=== PATIENT | male | born 1990 | race Caucasian/White ===

== ENCOUNTER 2022-10-17 07:27 | Outpatient (CLI) | payer BC, SELFPAY ==
--- NOTE | ~2022-10-17 | US_ITS ---
Abdominal Sonogram: Real-time sonographic imaging of the abdomen was performed. Clinical History: Abnormal serum enzymes Findings: The liver appears mildly echogenic/heterogeneous, with no evidence of mass lesion or bile duct dilatation. It measures 19.6 cm in length. Main portal vein demonstrates normal direction of elsa w. The spleen is borderline enlarged, without evidence of focal lesion. The gallbladder is well dist ended, and appears normal with no evidence of gallstone or wall thickening. The common bile duct jim ures 3 mm. The visualized aorta and IVC are unremarkable. Pancreas obscured by bowel gas shadowing. The right kidney measures 11.4 cm in length and the left kidney measures 11.7 cm. There is no hydron ephrosis or renal calculus. Impression: Hepatomegaly with probable diffuse fatty infiltration of the liver. Borderline splenomegaly. Reviewed, dictated and finalized at [facility]. CULAR BIOLOGY DIRECTOR Impression: Hepatomegaly with probable diffuse fatty infiltration of the liver. Borderline splenomegaly.
== END 2022-10-17 07:28 | disposition home or self-care (01) ==
LOC: CHSIMG 07:30
PROVIDERS: PCP Family Medicine; Visit Provider Family Medicine
DX: R74.8 Abnormal levels of other serum enzymes (principal); R16.0 Hepatomegaly, not elsewhere classified; R16.1 Splenomegaly, not elsewhere classified
CPT/HCPCS: 76700

== ENCOUNTER 2022-10-19 08:52 | Outpatient (CLI) | payer BC, SELFPAY ==
--- NOTE | ~2022-10-19 | CT_ITS ---
CT Abdomen and Pelvis with contrast. History: Elevated pancreatic enzymes. Spiral CT of the abdomen and pelvis was performed after the administration of intravenous contrast. 1 00 cc of Omnipaque 350 was administered intravenously without complication. Dose reduction technique was used on this scan by utilizing automated exposure control and iterative reconstruction technique. The dose-length product (DLP) was 928.57 mGy-cm. Findings: Scans through the lung bases demonstrate mild atelectatic change. The liver, spleen, pancreas, gallbladder, adrenals and kidneys are within normal limits. No evidence of aortic aneurysm. No lymphadenopathy is seen. There is no evidence of bowel obstruction. There is no evidence to suggest acute appendicitis or dive rticulitis. Images through the pelvis were performed. Urinary bladder unremarkable. Prostate gland and seminal ve sicles are unremarkable. No ascites is seen. Impression: No significant abnormalities seen. Reviewed, dictated and finalized at [facility]. TER IN Impression: No significant abnormalities seen.
== END 2022-10-19 08:53 | disposition home or self-care (01) ==
LOC: CHSIMG 08:54
PROVIDERS: PCP Family Medicine; Visit Provider Family Medicine
DX: R74.8 Abnormal levels of other serum enzymes (principal)
CPT/HCPCS: 74177; Q9967

== ENCOUNTER 2022-10-30 09:44 | Outpatient (CLI) | payer BC, SELFPAY ==
[2022-10-30 10:28] LABS: Lipase 132 U/L (23-300)
[2022-11-01 19:49] LABS: Tissue Transglutaminase IgA Ab <1.0 U/mL (<15.0)
[2022-11-01 20:47] LABS: Tissue Transglutaminase IgG Ab <1.0 U/mL (<15.0)
== END 2022-10-30 09:45 | disposition home or self-care (01) ==
LOC: ANHLAB 09:46
PROVIDERS: PCP Family Medicine; Visit Provider Nurse Practitioner
DX: K21.9 Gastro-esophageal reflux disease without esophagitis (principal); R10.30 Lower abdominal pain, unspecified; R19.7 Diarrhea, unspecified; R13.10 Dysphagia, unspecified; R74.8 Abnormal levels of other serum enzymes; R93.3 Abnormal findings on diagnostic imaging of other parts of digestive tract
CPT/HCPCS: 36415; 83516; 83690; 84443

== ENCOUNTER 2022-11-24 01:59 | Day surgery (SDC) | payer BC, SELFPAY ==
[2022-11-13 13:50] VITALS: BMI 32.8
--- NOTE | 2022-11-23 15:19 | P.PNAN_ITS ---
Anes - Initial Pre Proc Eval Procedure: Operation Date: 11/24/22 11:15 Proposed Procedures p Esophagogastroduodenoscopy & Colonoscopy - Presley Eid MD Date/Time: 11/23/22 15:19 Surgeon: Presley Eid MD Pre Op Diagnosis: diarrhea, dysphagia Patient Data Age: 32 Gender: M Height: 1.83 m Weight: 110 kg Allergies Allergy/AdvReac Type Severity Reaction Status Date / Time Penicillins Allergy Swelling Verified 11/24/22 09:46 of Lip/Tongue/Throat Home Medications Medication Instructions Recorded Confirmed Type esomeprazole magnesium 40 mg 40 mg PO DAILY 10/27/22 11/24/22 History capsule,delayed release sumatriptan succinate 100 mg tablet 100 mg PO ONCE PRN Migraine 10/27/22 11/24/22 History Headache meclizine 25 mg tablet 25 mg PO DAILY PRN Migraine 11/13/22 11/24/22 History Headache oxcarbazepine 150 mg 150 mg PO BID 11/13/22 11/24/22 History tablet,extended release 24 hr promethazine 25 mg tablet 25 mg PO DAILY PRN Migraine 11/13/22 11/24/22 History Headache Patient hx anesthesia problems: none Family hx anesthesia problems: none Results Review: All pre-operative results and documents have been reviewed as part of the pre- operative evaluation. [facility] Past Medical History Medical History (Updated 10/30/22 @ 09:52 by Opal Baeza APRN) Diarrhea Dysphagia GERD (gastroesophageal reflux disease) Hepatic steatosis Increased serum lipase level Lower abdominal pain Migraine Obesity Family History Family History Father Heart disease Coronary artery disease Social History Social History Smoking status: Unknown if ever smoked Tobacco type: smokeless tobacco Smokeless tobacco user: chewing tobacco Additional smoking assessment comments: Chewing since age 12 Substance use: former Living arrangements: with family Anes - Eval Final PreProcedure Day of Procedure 11/23/22 15:19 Patient weight: obese Heart: regular rate and rhythm Lungs: clear to auscultation Airway: Mallampati scale class II Neurological: alert and oriented Last oral intake: >/= 8 hours ASA classification: III Emergent: no Anesthetic plan: proceed Anesthesia type and monitoring: general GIVS and standard monitoring Results Review: All pre-operative results and documents have been reviewed as part of the pre- operative evaluation. Informed Consent: The patient's anesthetic plan and its attendant risks and benefits were discussed with the patient/family/POA. Questions were solicited and answers provided to the satisfaction of the patient/family/POA.
[2022-11-24 09:51] VITALS: BP 150/95; PULSE 75; RESP 18; TEMP 36.5; O2SAT 99
[2022-11-24] MEDS: LACTATED RINGERS 1,000 ML 150 ML IV CONT (10:00)
--- NOTE | 2022-11-24 10:33 | WPDHPUPDATE1 ---
History and Physical Update Update Date/Time: 11/24/22 10:33 History and Physical has been reviewed, including an updated exam of the patient. There are NO changes in the patient's condition. Risks, benefits, and alternatives have been discussed and questions answered. Patient agrees to proceed with procedure.
--- NOTE | 2022-11-24 11:08 | SUR.OPER ---
EGD ENDED AT 1054. COLONOSCOPY BEGAN AT 1100.
[2022-11-24 11:14] VITALS: BP 133/97; PULSE 81; RESP 20; O2SAT 100
[2022-11-24 11:24] VITALS: BP 130/93; PULSE 77; RESP 20; O2SAT 98
[2022-11-24 11:34] VITALS: BP 135/92; PULSE 77; RESP 20; O2SAT 98
== END 2022-11-24 11:48 | disposition home or self-care (01) ==
PROVIDERS: PCP Family Medicine; Visit Provider Internal Medicine Gastroenterology
PROC: 0DJ08ZZ Inspection of Upper Intestinal Tract, Via Natural or Artificial Opening Endoscopic (ICD-10-PCS; CPT 43235; principal; 2022-11-24 11:15)
DX: R19.7 Diarrhea, unspecified (principal); K57.30 Diverticulosis of large intestine without perforation or abscess without bleeding; K21.9 Gastro-esophageal reflux disease without esophagitis; K22.2 Esophageal obstruction; K44.9 Diaphragmatic hernia without obstruction or gangrene; K29.70 Gastritis, unspecified, without bleeding; K76.0 Fatty (change of) liver, not elsewhere classified; F17.220 Nicotine dependence, chewing tobacco, uncomplicated; E66.9 Obesity, unspecified; Z68.31 Body mass index [BMI] 31.0-31.9, adult
CPT/HCPCS: 45380; 43239; 43249; 88305; C1726; J2704; J7120

== ENCOUNTER 2023-03-05 08:56 | Outpatient (CLI) | payer BC, SELFPAY ==
[2023-03-05 09:19] LABS: Hematocrit 46.8 % (42.0-52.0); Hemoglobin 15.9 g/dL (14.0-18.0); Mean Corpuscular Hemoglobin 30.5 pg (26-34); Mean Corpuscular Volume 89.7 fl (80-100); Mean Platelet Volume 8.9 fl (7.4-10.4); Platelet Count Result 239 k/mm3 (150-375); Red Blood Count 5.22 M/mm3 (4.6-6.20); White Blood Count 6.6 K/mm3 (4.5-10.0)
[2023-03-05 09:30] LABS: Alanine Aminotransferase 29 U/L (6-50); Albumin Level 4.3 g/dL (3.5-5.1); Alkaline Phosphatase 70 U/L (38-126); Anion Gap 5 mmol/L (8-16); Aspartate Amino Transferase 26 U/L (17-59); Bilirubin,Total 0.5 mg/dL (0.2-1.3); Blood Urea Nitrogen 15 mg/dL (9-20); Calcium 8.9 mg/dL (8.4-10.2); Carbon Dioxide 29 mmol/L (22-30); Chloride 107 mmol/L (98-107); Estimated Glomerular Filt Rate > 60; Glucose 91 mg/dL (65-110); Potassium 4.3 mmol/L (3.4-5.0); Sodium 141 mmol/L (137-145)
[2023-03-16 00:01] LABS: ALT 21 U/L (9-46); Alpha-2-Macroglobulin 190 mg/dL (106-279); Apolipoprotein A1 136 mg/dL (94-176); Fibrosis Stage F0; GGT 41 U/L (3-90); Haptoglobin 171 mg/dL (43-212); Necroinflammat Act Grade A0; Total Bilirubin 0.3 mg/dL (0.2-1.2)
== END 2023-03-05 08:57 | disposition home or self-care (01) ==
LOC: ANHLAB 08:57
PROVIDERS: PCP Family Medicine; Visit Provider Nurse Practitioner
DX: K76.0 Fatty (change of) liver, not elsewhere classified (principal)
CPT/HCPCS: 36415; 80053; 81596; 85027

== ENCOUNTER 2023-07-04 09:27 | Outpatient (CLI) | payer BC, SELFPAY ==
--- NOTE | 2023-07-04 11:00 | NEURO_ITS ---
IMPRESSION: # Complains of numbness of right hand. # Evolving right capral tunnel syndrome. # No ulnar neuropathy. # Needle exam not ordered Nerve Conduction Studies Anti Sensory Summary Table Stim Site NR Peak (ms) P-T Amp (?V) Site1 Site2 Delta-P (ms) Dist (cm) Ramos (m/s) Right Median Anti Sensory (2-3nd Digit) Wrist 3.5 129.2 Wrist 2-3nd Digit 3.5 14.0 40 Wrist 3.1 31.3 Wrist 2-3nd Digit 3.5 14.0 40 Right Radial Anti Sensory (Base 1st Digit) Wrist 2.2 29.1 Wrist Base 1st Digit 2.2 0.0 Right Ulnar Anti Sensory (5th Digit) Wrist 2.8 27.5 Wrist 5th Digit 2.8 14.0 50 Motor Summary Table Stim Site NR Onset (ms) O-P Amp (mV) Site1 Site2 Delta-0 (ms) Dist (cm) Ramos (m/s) Right Median Motor (Abd Poll Brev) Wrist 4.1 5.6 Elbow Wrist 4.8 31.0 65 Elbow 8.9 2.0 Right Ulnar Motor (Abd Dig Minimi) Wrist 2.7 7.2 A Elbow Wrist 4.3 31.0 72 A Elbow 7.0 7.3 F Wave Studies NR F-Lat (ms) L-R F-Lat (ms) Right Median (Mrkrs) (Abd Poll Brev) 32.03 Right Ulnar (Mrkrs) (Abd Dig Min) 31.02 MTDD
== END 2023-07-04 09:28 | disposition home or self-care (01) ==
PROVIDERS: PCP Family Medicine; Visit Provider Family Medicine
DX: G56.01 Carpal tunnel syndrome, right upper limb (principal)
CPT/HCPCS: 95909

== ENCOUNTER 2023-09-05 09:24 | Outpatient (CLI) | payer BC, SELFPAY ==
[2023-09-05 10:07] LABS: Hematocrit 45.8 % (42.0-52.0); Hemoglobin 15.5 g/dL (14.0-18.0); Mean Corpuscular HGB Conc 33.8 g/dl (32-36); Mean Corpuscular Hemoglobin 30.8 pg (26-34); Mean Corpuscular Volume 91.1 fl (80-100); Platelet Count Result 276 k/mm3 (150-375); Red Blood Count 5.03 M/mm3 (4.6-6.20); Red Cell Distribution Width 12.2 % (11.5-14.5); White Blood Count 6.9 K/mm3 (4.5-10.0)
[2023-09-05 10:17] LABS: Alanine Aminotransferase 34 U/L (6-50); Albumin Level 4.4 g/dL (3.5-5.1); Alkaline Phosphatase 80 U/L (38-126); Anion Gap 12 mmol/L (8-16); Aspartate Amino Transferase 26 U/L (17-59); Bilirubin,Total 0.6 mg/dL (0.2-1.3); Blood Urea Nitrogen 15 mg/dL (9-20); Calcium 9.2 mg/dL (8.4-10.2); Carbon Dioxide 24 mmol/L (22-30); Chloride 105 mmol/L (98-107); Estimated Glomerular Filt Rate > 60; Glucose 106 mg/dL (65-110); Potassium 4.3 mmol/L (3.4-5.0); Sodium 141 mmol/L (137-145)
[2023-09-05 10:19] LABS: INR 0.9; Prothrombin Time 12.7 Seconds (11.1-14.7)
== END 2023-09-05 09:25 | disposition home or self-care (01) ==
LOC: ANHLAB 09:25
PROVIDERS: PCP Family Medicine; Visit Provider Nurse Practitioner
DX: K76.0 Fatty (change of) liver, not elsewhere classified (principal)
CPT/HCPCS: 36415; 80053; 85027; 85610

== ENCOUNTER 2023-11-07 12:48 | Outpatient (CLI) | payer BC, SELFPAY ==
--- NOTE | 2023-11-07 14:00 | NEURO_ITS ---
Impression: # Complains of right hand particularly 5th finger numbness. # Evolving right Carpal Tunnel Syndrome. # No ulnar neuropathy. # Clinical correlation recommended. # Compared to study done on 07/04/23 Nerve Conduction Studies Anti Sensory Summary Table Stim Site NR Peak (ms) P-T Amp (?V) Site1 Site2 Delta-P (ms) Dist (cm) Ramos (m/s) Right Median Anti Sensory (2-3nd Digit) Wrist 3.8 39.0 Wrist 2-3nd Digit 3.8 14.0 37 Wrist 3.7 27.6 Wrist 2-3nd Digit 3.8 14.0 37 Right Radial Anti Sensory (Base 1st Digit) Wrist 2.4 21.7 Wrist Base 1st Digit 2.4 0.0 Right Ulnar Anti Sensory (5th Digit) Wrist 2.8 42.6 Wrist 5th Digit 2.8 14.0 50 Motor Summary Table Stim Site NR Onset (ms) O-P Amp (mV) Site1 Site2 Delta-0 (ms) Dist (cm) Ramos (m/s) Right Median Motor (Abd Poll Brev) Wrist 3.5 8.1 Elbow Wrist 5.0 31.0 62 Elbow 8.5 3.8 Right Ulnar Motor (Abd Dig Minimi) Wrist 2.2 8.5 A Elbow Wrist 5.2 31.0 60 A Elbow 7.4 6.8 F Wave Studies NR F-Lat (ms) L-R F-Lat (ms) Right Median (Mrkrs) (Abd Poll Brev) 29.45 Right Ulnar (Mrkrs) (Abd Dig Min) 28.75 MTDD
== END 2023-11-07 12:49 | disposition home or self-care (01) ==
LOC: ANHNEURO 12:49
PROVIDERS: PCP Family Medicine; Visit Provider Family Medicine
DX: G56.01 Carpal tunnel syndrome, right upper limb (principal); G56.21 Lesion of ulnar nerve, right upper limb
CPT/HCPCS: 95909

== ENCOUNTER 2023-11-09 09:50 | Outpatient (CLI) | payer BC, SELFPAY ==
--- NOTE | ~2023-11-09 | XR_ITS ---
EXAMINATION: XR hand RT min 3V INDICATION: Right hand pain and numbness TECHNIQUE: Three views of the right hand are obtained. COMPARISON: None available FINDINGS: Bone alignment is normal. There is no fracture. The joint spaces are normal. The soft tissu es are unremarkable. IMPRESSION: 1. No acute osseous abnormality. Reviewed, dictated and finalized at location F. KER DRIVER
--- NOTE | ~2023-11-09 | XR_ITS ---
EXAMINATION:XR cervical spine 4-5V DATE: 11/09/2023 10:35 INDICATION: Neck pain TECHNIQUE: AP, lateral, bilateral oblique and odontoid views of the cervical spine are provided. COMPARISON: None FINDINGS: Alignment is normal. The odontoid process is intact. No fracture is identified. Vertebral b victor m heights and disk spaces are normal. Prevertebral soft tissues are normal. IMPRESSION: 1. Unremarkable cervical spine radiographs. Reviewed, dictated and finalized at location F. UTERIZED TABLE CUTTER
== END 2023-11-09 09:51 | disposition home or self-care (01) ==
LOC: CHSIMG 09:52
PROVIDERS: PCP Family Medicine; Visit Provider Family Medicine
DX: M79.641 Pain in right hand (principal); M54.2 Cervicalgia
CPT/HCPCS: 72050; 73130

== ENCOUNTER 2024-02-20 15:39 | Outpatient (CLI) | payer BC, SELFPAY ==
[2024-02-20 16:24] LABS: Hematocrit 45.1 % (42.0-52.0); Hemoglobin 15.2 g/dL (14.0-18.0); Mean Corpuscular HGB Conc 33.7 g/dl (32-36); Mean Corpuscular Hemoglobin 31.3 pg (26-34); Mean Corpuscular Volume 92.8 fl (80-100); Mean Platelet Volume 9.2 fl (7.4-10.4); Platelet Count Result 269 k/mm3 (150-375); Red Blood Count 4.86 M/mm3 (4.6-6.20); White Blood Count 8.6 K/mm3 (4.5-10.0)
[2024-02-20 16:34] LABS: Alanine Aminotransferase 32 U/L (6-50); Albumin Level 4.3 g/dL (3.5-5.1); Alkaline Phosphatase 88 U/L (38-126); Anion Gap 7 mmol/L (4-12); Aspartate Amino Transferase 27 U/L (17-59); Bilirubin,Total 0.4 mg/dL (0.2-1.3); Blood Urea Nitrogen 17 mg/dL (9-20); Calcium 9.2 mg/dL (8.4-10.2); Carbon Dioxide 27 mmol/L (22-30); Chloride 107 mmol/L (98-107); Estimated Glomerular Filt Rate > 60; Glucose 102 mg/dL (65-110); INR 0.9; Potassium 3.7 mmol/L (3.4-5.0); Sodium 141 mmol/L (137-145)
== END 2024-02-20 15:40 | disposition home or self-care (01) ==
LOC: ANHLAB 15:41
PROVIDERS: PCP Family Medicine; Visit Provider Nurse Practitioner
DX: K76.0 Fatty (change of) liver, not elsewhere classified (principal)
CPT/HCPCS: 36415; 80053; 85027; 85610

== ENCOUNTER 2024-03-03 14:57 | Outpatient (CLI) | payer BC, SELFPAY ==
--- NOTE | ~2024-03-03 | XR_ITS ---
XR knee LT 3V DATE: 03/03/2024 15:19 INDICATION: Constant knee pain, right worse than left. No known injury. TECHNIQUE: 3 views of left knee COMPARISON: None FINDINGS: No fracture or dislocation or joint effusion. Joint spaces are well preserved. No radiopaqu e intra-articular loose body or chondrocalcinosis. No periosteal reaction or bone destruction. IMPRESSION: Negative Reviewed, dictated and finalized at location A. IMPRESSION: Negative
--- NOTE | ~2024-03-03 | XR_ITS ---
XR knee RT 3V DATE: 03/03/2024 15:19 INDICATION: Bilateral constant knee pain, right worse than left. No injury. TECHNIQUE: AP, lateral, sunrise views COMPARISON: None FINDINGS: No fracture, dislocation, periosteal reaction or bone destruction. No joint effusion. Joint spaces are well preserved. No radiopaque particulate is bilateral chondrocalcinosis. IMPRESSION: Negative Reviewed, dictated and finalized at location A. IMPRESSION: Negative
== END 2024-03-03 14:58 | disposition home or self-care (01) ==
PROVIDERS: PCP Family Medicine; Visit Provider Family Medicine
DX: M25.569 Pain in unspecified knee (principal)
CPT/HCPCS: 73562

== ENCOUNTER 2024-04-07 13:44 | Outpatient (CLI) | payer BC, SELFPAY ==
[2024-04-07 14:18] LABS: Basophils Absolute Auto 0.1 K/mm3 (0.0-0.1); Basophils Percent Auto 0.8 % (0.2-1.2); Eosinophils Absolute Auto 0.4 K/mm3 (0-0.3); Eosinophils Percent Auto 4.2 % (0-4.4); Hematocrit 45.3 % (42.0-52.0); Hemoglobin 15.4 g/dL (14.0-18.0); Immature Granulocyte Absolute 0.02 K/mm3 (0.00-0.031); Immature Granulocyte Percent A 0.2 % (0-0.5); Lymphocytes Absolute Auto 3.23 K/mm3 (0.9-3.2); Mean Corpuscular Hemoglobin 31.1 pg (26-34); Mean Corpuscular Volume 91.5 fl (80-100); Mean Platelet Volume 8.9 fl (7.4-10.4); Monocytes Absolute Auto 0.5 K/mm3 (0.1-0.6); Monocytes Percent Auto 5.8 % (2.6-8.5); Neutrophils Absolute Auto 4.5 K/mm3 (1.3-6.7); Platelet Count Result 276 k/mm3 (150-375); Red Blood Count 4.95 M/mm3 (4.6-6.20); Red Cell Distribution Width 12.3 % (11.5-14.5); White Blood Count 8.7 K/mm3 (4.5-10.0)
[2024-04-07 14:21] LABS: Appearance Urine Clear (Clear); Bilirubin Urine Negative (Negative); Blood Urine Negative (Negative); Color Urine Yellow (Yellow); Glucose Urine UA Negative (Negative); Ketones Urine Negative (Negative); Leukocyte Esterase Ur Negative LEU/UL (Negative); Nitrate Urine Negative (Negative); Protein Urine Negative (Negative); Specific Grav Ur 1.022 (1.001-1.035); Urobilinogen Urine 0.2 mg/dL (<2.0)
[2024-04-07 14:29] LABS: Alanine Aminotransferase 27 U/L (6-50); Albumin Level 4.5 g/dL (3.5-5.1); Alkaline Phosphatase 92 U/L (38-126); Anion Gap 10 mmol/L (4-12); Aspartate Amino Transferase 24 U/L (17-59); Bilirubin,Total 0.5 mg/dL (0.2-1.3); Blood Urea Nitrogen 16 mg/dL (9-20); Carbon Dioxide 26 mmol/L (22-30); Chloride 105 mmol/L (98-107); Estimated Glomerular Filt Rate > 60; Glucose 101 mg/dL (65-110); Sodium 141 mmol/L (137-145)
[2024-04-07 14:37] LABS: Rheumatoid Factor < 12.0 IU/ML (<12)
[2024-04-07 14:50] LABS: Vitamin D 25 Hydroxy 33.9 ng/mL
[2024-04-07 14:57] LABS: Add Urine Microscopic? NO
[2024-04-07 15:34] LABS: Erythrocyte Sedimentation Rate 8 mm/hr (0-20)
[2024-04-09 13:53] LABS: Anti Cyclic Citrullinated Pept <16 UNITS
[2024-04-10 12:53] LABS: Anti Nuclear Antibody Pattern Nuclear, Speckled
== END 2024-04-07 13:45 | disposition home or self-care (01) ==
LOC: ANHLAB 13:46
PROVIDERS: PCP Family Medicine; Visit Provider Nurse Practitioner Family
DX: M25.50 Pain in unspecified joint (principal)
CPT/HCPCS: 36415; 80053; 81003; 82306; 85025; 85652; 86038; 86039; 86200; 86430

== ENCOUNTER 2024-06-11 16:04 | Outpatient (CLI) | payer BC, SELFPAY ==
--- NOTE | ~2024-06-11 | XR_ITS ---
EXAMINATION: XR ribs LT 2V w CXR 2V DATE: 06/11/2024 16:43 INDICATION: Left chest wall mass. Shortness of breath. Chest pain. TECHNIQUE: Frontal and lateral views of the chest and 2 views on 3 radiographs of the left ribs were obtained. COMPARISON: CT abdomen and pelvis 10/19/2022 FINDINGS: CHEST TWO VIEWS: There is no pneumonia, pleural effusion, or pneumothorax. The heart size is normal. LEFT RIBS: There is no rib fracture. IMPRESSION: 1. No rib fracture. Reviewed, dictated and finalized at location A. IMPRESSION: 1. No rib fracture.
[2024-06-11 16:51] LABS: Basophils Absolute Auto 0.08 K/mm3 (0.00-0.10); Eosinophils Absolute Auto 0.36 K/mm3 (0.02-0.50); Eosinophils Percent Auto 4.6 % (1.0-6.0); Hematocrit 43.5 % (40.0-54.0); Hemoglobin 15.2 g/dL (14.0-18.0); Immature Granulocyte Absolute 0.02 K/mm3 (0.00-0.00); Immature Granulocyte Percent A 0.3 % (0.0-0.0); Lymphocytes Absolute Auto 3.48 K/mm3 (1.10-4.50); Lymphocytes Percent Auto 44.1 % (18.0-42.0); Mean Corpuscular HGB Conc 34.9 g/dL (32-36); Mean Corpuscular Hemoglobin 31.5 pg (27.0-31.0); Mean Corpuscular Volume 90.1 fL (78.0-102.0); Mean Platelet Volume 9.1 fl (8.7-11.0); Monocytes Absolute Auto 0.55 K/mm3 (0.10-0.90); Platelet Count Result 270 K/mm3 (150-420); Red Blood Count 4.83 M/mm3 (4.70-6.10); Red Cell Distribution Width 12.3 % (11.6-14.4); White Blood Count 7.9 K/mm3 (4.8-10.8)
[2024-06-11 17:07] LABS: Alanine Aminotransferase 32 U/L (16-63); Albumin Level 3.6 g/dL (3.4-5.0); Alkaline Phosphatase 118 U/L (46-116); Anion Gap 6 mmol/L (4-12); Aspartate Amino Transferase 21 U/L (15-37); Bilirubin,Total 0.3 mg/dL (0.00-1.00); Blood Urea Nitrogen 12 mg/dL (7-18); Calcium 8.9 mg/dL (8.5-10.1); Carbon Dioxide 29 mmol/L (21-32); Chloride 103 mmol/L (98-108); Estimated Glomerular Filt Rate > 60; Glucose 104 mg/dL (70-99); Osmolality Calculated 285 mOsm/kg (285-295); Sodium 138 mmol/L (136-145); Thyroid Stimulating Hormone 1.37 uIU/mL (0.36-3.74); Total Protein 7.3 g/dL (6.4-8.2)
== END 2024-06-11 16:05 | disposition home or self-care (01) ==
LOC: CHSLAB 16:07
PROVIDERS: PCP Family Medicine; Visit Provider Family Medicine
DX: R22.2 Localized swelling, mass and lump, trunk (principal); R53.83 Other fatigue; N64.4 Mastodynia
CPT/HCPCS: 36415; 71046; 71100; 80053; 84443; 85025

== ENCOUNTER 2024-06-16 09:39 | Outpatient (CLI) | payer BC, SELFPAY ==
--- NOTE | ~2024-06-16 | MMUS_ITS ---
EXAMINATION: MM diagnostic dulce BI w kamron, US breast LT limited HISTORY: Breast pain TECHNIQUE: Additional 3-D tomosynthesis images of the left breast were performed and synthetic 2-D im ages were generated. CAD analysis was submitted and interpreted. High resolution Limited left breast ultrasound was performed. COMPARISON: None BREAST PARENCHYMAL COMPOSITION: Not Dense: The breasts are almost entirely fatty. FINDINGS: MAMMOGRAPHIC FINDINGS: There is mild bilateral gynecomastia. No suspicious masses, calcifications or architectural distortio n to suggest malignancy. ULTRASOUND: Limited left breast ultrasound: Normal heterogeneous echotexture without focal mass. IMPRESSION: 1. No evidence for malignancy in the left breast. 2. Recommend follow-up clinical management for gynecomastia. BI-RADS Category 2: Benign finding(s). Reviewed, dictated and finalized at location B. IMPRESSION: 1. No evidence for malignancy in the left breast. 2. Recommend follow-up clinical management for gynecomastia. BI-RADS Category 2: Benign finding(s).
== END 2024-06-16 09:40 | disposition home or self-care (01) ==
LOC: CHSIMG 09:41
PROVIDERS: PCP Family Medicine; Visit Provider Family Medicine
DX: N64.4 Mastodynia (principal)
CPT/HCPCS: 76642; 77062; 77066; G0279

== ENCOUNTER 2025-02-19 12:17 | Outpatient (CLI) | payer OTHER, SELFPAY ==
[2025-02-19 12:56] LABS: Hematocrit 47.2 % (42.0-52.0); Hemoglobin 15.5 g/dL (14.0-18.0); Mean Corpuscular HGB Conc 32.8 g/dl (32-36); Mean Corpuscular Hemoglobin 29.9 pg (26-34); Mean Corpuscular Volume 90.9 fl (80-100); Mean Platelet Volume 8.8 fl (7.4-10.4); Platelet Count Result 314 k/mm3 (150-375); Red Blood Count 5.19 M/mm3 (4.6-6.20); Red Cell Distribution Width 12.5 % (11.5-14.5)
[2025-02-19 13:06] LABS: Alanine Aminotransferase 33 U/L (6-50); Albumin Level 4.5 g/dL (3.5-5.1); Alkaline Phosphatase 99 U/L (38-126); Anion Gap 10 mmol/L (4-12); Aspartate Amino Transferase 22 U/L (17-59); Bilirubin,Total 0.5 mg/dL (0.2-1.3); Blood Urea Nitrogen 13 mg/dL (9-20); Calcium 9.3 mg/dL (8.4-10.2); Carbon Dioxide 27 mmol/L (22-30); Chloride 104 mmol/L (98-107); Estimated Glomerular Filt Rate > 60; Glucose 111 mg/dL (65-110); Magnesium 2.2 mg/dL (1.6-2.3); Sodium 141 mmol/L (137-145)
[2025-02-19 13:19] LABS: INR 0.9; Prothrombin Time 12.4 Seconds (11.1-14.7)
== END 2025-02-19 12:18 | disposition home or self-care (01) ==
PROVIDERS: PCP Family Medicine; Visit Provider Nurse Practitioner
DX: K21.9 Gastro-esophageal reflux disease without esophagitis (principal); K76.0 Fatty (change of) liver, not elsewhere classified; K58.0 Irritable bowel syndrome with diarrhea
CPT/HCPCS: 36415; 80053; 82607; 83735; 85027; 85610